=== PATIENT | female | born 1990 | race Caucasian/White ===

== ENCOUNTER 2017-10-26 18:12 | Emergency (ER) | payer OTHER ==
[~2017-10-26] VITALS: Ht 182.9 cm; Wt 95.7 kg
[2017-10-26 18:30] VITALS: BP 150/70
--- NOTE | 2017-10-26 18:32 | NUR ---
PT. CAME INTO THE ED DUE TO FACIAL PAIN AND ARM PAIN DUE TO BEAR JERAMY SPRAYING ON HER. 8/10 BURNING PAIN IN FACE AND BILATERAL ARMS. FACE IS RED AND WARM TO TOUCH AND ARMS ARE WARM TO TOUCH. RR EVEN AND UNLABORED. PT. STATES " I WAS FIXING SOME THINGS AT HOME AND THE BEAR JERAMY WAS IN THE FLOOR, SOMETHING FELL ON IT AND IT BURST AND IT LANDED ON MY FACE AND MY ARMS AND THEY HURT AND BURN, I RINSED THEM RIGHT AFTER IT HAPPENED WITH WATER". PT STATES " VISION IS BLURRY. ER MD NOTIFIED. WILL CONTINUE TO MONITOR.
--- NOTE | 2017-10-26 19:08 | NUR ---
POISON CONTROL CALLED. RECOMMENDED O2 PRN, EYE EXAMINATION, WATCH FOR ALBARRAN AND ABRASIONS TO EYES.
--- NOTE | 2017-10-26 19:10 | NUR ---
AALIYAH MCKEON MADE AWARE OF POISON CONTROL RECOMMENDATIONS. PATIENT NOT IN DISTRESS.
[2017-10-26] MEDS ORDERED: LIDOCAINE JELLY 2% 30 ML TUBE TP ONE (19:15)
[2017-10-26] MEDS ORDERED: FLUORESCEIN OPTH STRIP 0.6 MG OP ONE ×2 (19:15)
--- NOTE | 2017-10-26 19:18 | NUR ---
RECEIVED REPORT FROM JACOBY SARAH
[2017-10-26] MEDS ORDERED: TETRACAINE HCL/PF 0.5% OPTH 4 ML BTL OP ONE (19:35)
[2017-10-26] MEDS ORDERED: TETRACAINE HCL/PF 0.5% OPTH 4 ML BTL ONE (19:38)
[2017-10-26 20:06] VITALS: BP 115/81
--- NOTE | 2017-10-26 20:06 | NUR ---
Patient discharged with v/s stable. Written and verbal after care instructions given and explained. Patient verbalized understanding. Ambulatory with steady gait. All questions addressed prior to discharge. Advised to follow up with PMD.
== END 2017-10-26 20:06 | disposition home or self-care (01) ==
LOC: MED 18:12
DX: Z13.88 Encounter for screening for disorder due to exposure to contaminants (principal); H57.8 Other specified disorders of eye and adnexa
CPT/HCPCS: 99284; Q0163; 99283